=== PATIENT | female | born 1985 | race Caucasian/White ===

== ENCOUNTER → 2016-08-28 | Outpatient (CLI) | payer MEDICAID ==
[~2016-08-28] MED LIST: AMOXIL500 MG PO; CEPHALEXIN500 MG PO; CIPRO 500MG TA500 MG PO; DARVOCET-N 1001 EACH PO; FERROUS SULFAT324 M1 PO; FLAGYL500 MG PO; FLEXERIL10 M1 PO; FLEXERIL10 MG PO; HYDROCODONE1 TABLET PO; IBU-8800 MG PO; IBU800 M1 PO; IRON TABLETS325 MG PO; IRON324 MG PO; KEFLEX 500MG.500 MG PO; LORCET HD PO; LORTAB 5/500 501 TAB PO; MACROBID 100MG100 MG PO; MEDROL 4MG. DOSE4 MG PO; MOTRIN600 MG PO; NAPROSYN 500MG500 MG PO; NASONEX0.05 MG/AC NS; NOMEDS *; NOMEDS XX; NORCO 325 MG-51 TAB PO; PEN-VK500 MG PO; PRENATAL PLUS1 TA1 PO; PYRIDIUM 200MG200 MG PO; ROBAXIN-750750 MG PO; SPRINTEC 35 MCG1 TAB PO; TESSALON PERLE100 MG PO; TRAMADOL 50MG T50 M1 PO; TRAMADOL50 M1 PO; TYLENOL ES500 M1 PO; VIBRAMYCIN 100100 MG PO; VICODIN 5/500 T1 TAB PO; VOLTAREN75 MG PO
[2016-08-28 16:52] LABS: LYMPH # 2.1 K/mm3 (0.7-4.5)
[2016-08-28 16:55] LABS: HEMOGLOBIN 11.7 g/dL (12.2-16.2)
[2016-08-28 19:26] LABS: ABO BLOOD TYPE A; RH BLOOD TYPE POSITIVE
[2016-08-30 06:39] LABS: HBsAg Screen Negative (Negative); HIV Screen 4th Generation wRfx Non Reactive (Non Reactive)
[2016-08-30 08:43] LABS: Rubella Antibodies, IgG 1.22 index (Immune >0.99)
[2016-08-30 09:38] LABS: Rapid Plasma Reagin, Quant Non Reactive (NonRea<1:1)
== END ==
LOC: LAB 16:21
PROVIDERS: Nurse Practitioner Obstetrics & Gynecology
DX: Z34.80 Encounter for supervision of other normal pregnancy, unspecified trimester (principal)
CPT/HCPCS: G0432

== ENCOUNTER → 2016-09-05 | Outpatient (CLI) | payer MEDICAID ==
--- NOTE | 2016-09-06 08:50 | RADIOLOGY REPORT PS360 ---
US PREG > 14 WEEKS SNGL/GEST HISTORY: OB DATES ORDERING PHYSICIAN: Riky Cunningham MD PATIENT AGE: 31 years COMPARISON: None FINDINGS: There is a live intrauterine gestation noted in cephalic presentation. heart and body motion noted with an FHR of 1 61 bpm. Fetus is active. The following parameters are obtained: BPD 15 weeks 3 days. OFD 16 weeks 1 day HC 15 weeks 4 day Abdominal circumference 16 weeks 2 day, Average ultrasound age is 16 weeks 0 days with an estimated weight of 145 g and estimated due date by ultrasound of 02/20/2017. Visually, average amniotic fluid volume. The placenta is posterior in implantation with possible accessory lobe anteriorly versus [place] Naik contraction. No obvious retroplacental hemorrhage. IMPRESSION: Live intrauterine gestation at 16 weeks as described above.
== END ==
LOC: RAD 13:30
DX: O26.841 Uterine size-date discrepancy, first trimester (principal)

== ENCOUNTER 2017-01-22 00:45 | Outpatient (CLI) | payer MEDICAID ==
[~2017-01-22] VITALS: Ht 152.4 cm; Wt 98.2 kg
[2017-01-22 01:26] LABS: URINE BILIRUBIN - DIPSTICK NEGATIVE (NEG); URINE BLOOD TRACE-LYSED (NEG)
[2017-01-22 01:44] VITALS: BP 123/85
[2017-01-22] MEDS ORDERED: PRENATAL MULTIV1 KIT PO (01:48)
== END 2017-01-22 03:10 | disposition home or self-care (01) ==
LOC: OBOUT 00:45 → OB 00:46 → OBOUT 03:10
PROVIDERS: Obstetrics & Gynecology
DX: O26.893 Other specified pregnancy related conditions, third trimester (principal); Z3A.35 35 weeks gestation of pregnancy; R10.9 Unspecified abdominal pain

== ENCOUNTER → 2017-02-01 | Outpatient (CLI) | payer MEDICAID ==
[~2017-02-01] MED LIST changes: +FERROUS SULFAT200 M1 PO; +PRENATAL MULTIV1 KIT PO
== END ==
LOC: LAB 16:08
DX: Z34.80 Encounter for supervision of other normal pregnancy, unspecified trimester (principal)

== ENCOUNTER 2017-06-03 11:06 | Emergency (ER) | payer MEDICAID ==
[~2017-06-03] VITALS: Ht 152.4 cm; Wt 92.5 kg
[~2017-06-03 11:06] MED LIST changes: +AMOXICILLIN 25250 M2 PO
--- OUTSIDE RECORDS SUMMARY | 2017-06-03 11:43 | External Medical Summary Rpt | CCD ---
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 YELLOW complet of 017 ed Urine 01:34 Ketones TRACE NEG Abnorma complet 017 l ed [Presen 01:34 ce] in Urine by Automat ed test strip Mucus 2+ NEG Abnorma complet [Presen 017 l ed ce] in 01:34 Urine sedimen t by Light microsc opy Nitrite NEGATIV NEG complet 017 E ed [Presen 01:34 ce] in Urine by Test strip Urobili 1.0 NEG complet nogen 017 ed [Presen 01:34 ce] in Urine by Test strip BASIC METABOLIC PANEL (06-07-2013 19:00) Glucose 87 74-106 complet 013 mg/dL ed Bld-mCn 19:00 c BUN 7 mg/dL 7-18 complet Bld-mCn 013 ed c 19:00 Creat 0.6 0.6-1.0 complet SerPl-m 013 mg/dL ed Cnc 19:00 ESTIMAT 199 50-200 complet ED 013 ML/MIN ed CREATIN 19:00 INE CLEARAN CE GFR 122 59- complet (ESTIMA 013 ML/MIN ed MISA) 19:00 Sodium 140 136-145 complet SerPl-s 013 mmoL/L ed Cnc 19:00 Potassi 4.4 3.5-5.1 complet um 013 mmoL/L ed SerPl-s 19:00 Cnc Chlorid 104 98-107 complet e 013 mmoL/L ed SerPl-s 19:00 Cnc CO2 24 21.0-32 complet SerPl-s 013 mmoL/L .0 ed Cnc 19:00 Calcium 9.1 8.5-10. complet 013 mg/dL 1 ed SerPl-m 19:00 Cnc B-HCG SerPl EIA 3rd IS-aCnc (06-07-2013 19:00) B-HCG 80517.9 complet SerPl 013 mIU/ML ed EIA 3rd 19:00 IS-aCn CBC with AUTO DIFF (06-07-2013 19:00) WBC # 10.7 4.8-10. complet Bld 013 K/MM3 8 ed Auto 19:00 RBC # 09-2 4.76 4.2-5.4 complet Bld 013 M/mm3 ed Auto 19:00 Hgb 13.1 12.2-16 complet Bld-mCn 013 g/dL .2 ed c 19:00 Hct Fr 40.0 % 37.0-47 complet Bld 013 .0 ed 19:00 MCV RBC 83.9 fl 82.2-97 complet 013 .8 ed 19:00 MCH RBC 27.5 pg 27-31.2 complet Qn 013 ed Auto 19:00 MEAN 32.7 31.8-35 complet CORPUSC 013 g/dl .4 ed ULAR 19:00 HGB CONC RDW RBC 14.9 % 11.5-17 complet Auto 013 .5 ed 19:00 Platele 291 142-424 complet t Bld 013 K/mm3 ed Ql 19:00 Manual MEAN 8.5 fl 7.4-10. complet PLATELE 013 4 ed T 19:00 VOLUME Granulo 65.3 % 37.0-80 complet cytes 013 .0 ed Fr Bld 19:00 Auto LYMPH % 06-07-2 26.7 % 10-50.0 complet 013 ed 19:00 Monocyt 5.3 % 1.7-9.3 complet es Fr 013 ed Bld 19:00 Auto Eosinop 06-07-2 2.5 % 0.1-12. complet hil Fr 013 0 ed Bld 19:00 Auto Basophi 06-07-2 0.2 % 0.1-2.0 complet ls Fr 013 ed Bld 19:00 Auto Granulo 06-07-2 7.0 1.8-7.8 complet cytes # 013 K/mm3 ed Bld 19:00 Auto Lymphoc 2 2.9 0.7-4.5 complet ytes Fr 013 K/mm3 ed Bld 19:00 Auto Monocyt 06-07-2 0.6 0.1-1.0 complet es # 013 K/mm3 ed Bld 19:00 Auto Eosinop 11-09-2 0.3 0.0-0.4 complet hil # 013 K/mm3 ed Bld 19:00 Auto Basophi 0.0 0-0.2 complet ls # 013 K/MM3 ed Bld 19:00 Auto URINALYSIS/COMPLETE (06-07-2013 19:00) URINE YELLOW YELLOW complet COLOR 013 ed 19:00 URINE CLEAR CLEAR complet APPEARA 013 ed NCE 19:00 URINE NEGATIV NEG complet GLUCOSE 013 E ed - 19:00 DIPSTIC K URINE NEGATIV NEG complet BILIRUB 013 E ed IN - 19:00 DIPSTIC K URINE NEGATIV NEG complet KETONE 013 E mg/dL ed 19:00 URINE Less 1.005-1 complet SPECIFI 013 than or .030 ed C 19:00 equal GRAVITY to 1.005 URINE TRACE-I NEG complet BLOOD 013 NTACT ed 19:00 URINE 7.0 UNK 5.0-8.5 complet PH 013 ed 19:00 URINE NEGATIV NEG complet PROTEIN 013 E mg/dL ed - 19:00 DIPSTIC K URINE 0.2 NEG complet UROBILI 013 E.U./dL ed NOGEN - 19:00 DIPSTIC K URINE NEGATIV NEG complet NITRATE 013 E ed - 19:00 DIPSTIC K URINE 2+ NEG complet LEUK 013 ed ESTERAS 19:00 E URINE 5-10 0 complet RBC 013 rbc/hpf ed 19:00 URINE 10-20 O complet WBC 013 wbc/hpf ed 19:00 URINE 5-10 0-5 complet SQUAMOU 013 #/hpf ed S CELLS 19:00 URINE 2+ NONE complet AMORPH 013 ed SEDIMEN 19:00 T B-HCG SerPl EIA 3rd [facility] (05-26-2013 09:55) B-HCG 39941.3 complet SerPl 013 mIU/ML ed EIA 3rd 09:55 IS-[facility] B-HCG Ur Ql (05-26-2013 08:45) B-HCG 10-28-2 POSITIV NEG complet Ur Ql 013 E ed 08:45 URINALYSIS/COMPLETE (05-26-2013 08:43) URINE 10-28-2 YELLOW YELLOW complet COLOR 013 ed 08:43 URINE 10-28-2 CLOUDY CLEAR complet APPEARA 013 ed NCE 08:43 URINE -28-2 NEGATIV NEG complet GLUCOSE 013 E ed - 08:43 DIPSTIC K URINE --2 NEGATIV NEG complet BILIRUB 013 E ed IN - 08:43 DIPSTIC K URINE 10-28-2 NEGATIV NEG complet KETONE 013 E mg/dL ed 08:43 URINE 10-28-2 Less 1.005-1 complet SPECIFI 013 than or .030 ed C 08:43 equal GRAVITY to 1.005 URINE --2 1+ NEG complet BLOOD 013 ed 08:43 URINE 10-28-2 6.0 UNK 5.0-8.5 complet PH 013 ed 08:43 URINE --2 NEGATIV NEG complet PROTEIN 013 E mg/dL ed - 08:43 DIPSTIC K URINE 10-28-2 0.2 NEG complet UROBILI 013 E.U./dL ed NOGEN - 08:43 DIPSTIC K URINE 10-28-2 NEGATIV NEG complet NITRATE 013 E ed - 08:43 DIPSTIC K URINE 10-28-2 3+ NEG complet LEUK 013 ed ESTERAS 08:43 E URINE 10-28-2 10-20 0 complet RBC 013 rbc/hpf ed 08:43 URINE 10-28-2 10-20 O complet WBC 013 wbc/hpf ed 08:43 URINE 10-28-2 5-10 0-5 complet SQUAMOU 013 #/hpf ed S CELLS 08:43 URINE 10-28-2 2+ O complet BACTERI 013 ed A 08:43 URINALYSIS/COMPLETE (03-29-2013 23:32) URINE 03-29-2 YELLOW YELLOW complet COLOR 013 ed 23:32 URINE 03-29-2 SL CLEAR complet APPEARA 013 CLOUDY ed NCE 23:32 URINE 03-29- NEGATIV NEG complet GLUCOSE 013 E ed - 23:32 DIPSTIC K URINE 03-29- NEGATIV NEG complet BILIRUB 013 E ed IN - 23:32 DIPSTIC K URINE 08-31-2 NEGATIV NEG complet KETONE 013 E mg/dL ed 23:32 URINE 08-31-2 Greater 1.005-1 complet SPECIFI 013 than .030 ed C 23:32 or GRAVITY equal to 1.030 URINE 08-31-2 2+ NEG complet BLOOD 013 ed 23:32 URINE 08-31-2 6.0 UNK 5.0-8.5 complet PH 013 ed 23:32 URINE 31-2 NEGATIV NEG complet PROTEIN 013 E mg/dL ed - 23:32 DIPSTIC K URINE 08-31-2 0.2 NEG complet UROBILI 013 E.U./dL ed NOGEN - 23:32 DIPSTIC K URINE 08-31-2 NEGATIV NEG complet NITRATE 013 E ed - 23:32 DIPSTIC K URINE 08-31-2 NEGATIV NEG complet LEUK 013 E ed ESTERAS 23:32 E URINE 31-2 10-20 0 complet RBC 013 rbc/hpf ed 23:32 URINE -31-2 20-50 0-5 complet SQUAMOU 013 #/hpf ed S CELLS 23:32 URINE -31-2 2+ OCC complet MUCUS 013 ed 23:32 B-HCG Ur Ql (03-06-2013 22:50) B-HCG 08-08-2 NEGATIV NEG complet Ur Ql 013 E ed 22:50 B-HCG Ur Ql (01-31-2013 23:40) B-HCG 07-05-2 NEGATIV NEG complet Ur Ql 013 E ed 23:40 URINALYSIS/COMPLETE (01-31-2013 23:40) URINE 07-05-2 YELLOW YELLOW complet COLOR 013 ed 23:40 URINE 07-05-2 SL CLEAR complet APPEARA 013 CLOUDY ed NCE 23:40 URINE 07-05-2 NEGATIV NEG complet GLUCOSE 013 E ed - 23:40 DIPSTIC K URINE 07-05-2 NEGATIV NEG complet BILIRUB 013 E ed IN - 23:40 DIPSTIC K URINE 07-05-2 NEGATIV NEG complet KETONE 013 E mg/dL ed 23:40 URINE 07-05-2 Greater 1.005-1 complet SPECIFI 013 than .030 ed C 23:40 or GRAVITY equal to 1.030 URINE 07-05-2 1+ NEG complet BLOOD 013 ed 23:40 URINE 07-05-2 6.0 UNK 5.0-8.5 complet PH 013 ed 23:40 URINE -05-2 NEGATIV NEG complet PROTEIN 013 E mg/dL ed - 23:40 DIPSTIC K URINE 07-05-2 0.2 NEG complet UROBILI 013 E.U./dL ed NOGEN - 23:40 DIPSTIC K URINE -05-2 NEGATIV NEG complet NITRATE 013 E ed - 23:40 DIPSTIC K URINE -05-2 NEGATIV NEG complet LEUK 013 E ed ESTERAS 23:40 E URINE 07-05-2 3-5 0 complet RBC 013 rbc/hpf ed 23:40 URINE 07-05-2 3-5 O complet WBC 013 wbc/hpf ed 23:40 URINE -05-2 5-10 0-5 complet SQUAMOU 013 #/hpf ed S CELLS 23:40 URINE -05-2 4+ OCC complet MUCUS 013 ed 23:40 URINE -05-2 TRACE NONE complet AMORPH 013 ed SEDIMEN 23:40 T Procedures Procedure DOS Code Location Performer Comment DELIVERY [id number] ADELE ANGULO PRODUCTS 7 [facility] CONCEPTIO N EXTERNAL OTHER 7359 ADELE ANGULO MANUALLY 4 [facility] ASSISTED [facility] DELIVERY OTHER 7359 ADELE ANGULO MANUALLY 9 [facility] ASSISTED [facility] DELIVERY REPAIR OF 7569 ADELE ANGULO OTHER 8 [facility] CURRENT [facility] OBSTETRIC LACERATIO N Encounters Encounter Start End Date Code Location Performer Type Date HOSPITAL ADELE - 7 7 [facility] INPATIENT [facility] ADELE [facility] 7 7 [facility] 7 7 [facility] - 7 7 [facility] - 7 7 [facility] A[facility] - 7 7 [facility] - 7 7 [facility] - 5 5 [facility] ADELE - 4 4 [facility] ADELE - 4 4 [facility] ADELE - 4 4 [facility] ADELE - 4 4 [facility] ADELE - 4 4 [facility] ADELE - 4 4 [facility] ADELE - 4 4 [facility] ADELE - 4 4 [facility] - 4 4 [facility] ADELE - 4 4 [facility] OUTPATIEN [facility] Emergency MÓNICA Mandel MD (ER) 3 19:21 3 20:32 [facility] ADELE - 3 3 [facility] OUTPATIEN [facility] Emergency MÓNICA Almanzar (ER) 3 08:53 3 11:37 [facility] E Emergency MÓNICA Mandel MD (ER) 3 23:35 3 00:11 [facility] Emergency MÓNICA Mandel MD (ER) 3 22:51 3 00:33 [facility] Emergency MÓNICA Mandel MD (ER) 3 23:43 3 00:38 [facility] ADELE - 3 3 [facility] OUTPATI[facility] Emergency MÓNICA Agrawal MD (ER) 3 22:27 3 22:37 [facility] ADELE - 3 3 [facility] - 2 2 [facility] - 2 2 [facility] - 2 2 [facility] A[facility] - 1 1 [facility] ADELE - 0 0 [facility] ADELE - 0 0 [facility] - 0 0 [facility] - 0 0 [facility] ADELE - 0 0 [facility] ADELE - 9 9 [facility] ADELE - 9 9 [facility] ADELE - 9 9 [facility] ADELE - 9 9 [facility] ADELE - 9 9 [facility] ADELE - 9 9 [facility] ADELE - 8 8 [facility] ADELE - 8 8 [facility] A[facility] - 8 8 [facility] A[facility] - 8 8 [facility]
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
--- OUTSIDE RECORDS SUMMARY | 2017-06-03 11:48 | External Medical Summary Rpt | CCD ---
Demographics Preferred Language Icelandic Marital Status Unknown Druze Affiliation Unknown Race Unknown Ethnic Group Unknown Author Author MARIIA Address Unknown Phone Immunization No patient found.
--- OUTSIDE RECORDS SUMMARY | 2017-06-03 11:48 | External Medical Summary Rpt ---
Author Author MARIIA العراقي, [employer] Organization [employer] Address Unknown Phone Unavailable Results Hemoglobin & Hematocrit panel in Blood Observa Value Referen Units Interpr Notes Date tion ce etation Range Hematocri 37.0 - % Low No Feb 15 t [Volume 47.0 informati 2016 6:50 on in AM Fraction] source of Blood data Hemoglobi 12.2 - g/dL Low No Feb 15 n 16.2 informati 2016 6:50 [Mass/vol on in AM ume] in source Blood data pH of Cord blood Observa Value Referen Units Interpr Notes Date tion ce etation Range pH of 7.35 - No Low No Feb 14 Cord 7.45 informati informati 2016 2:55 blood on in on in PM source source data data Blood type & Indirect antibody screen panel in Blood Observa Value Referen Units Interpr Notes Date ti ce etation Range Blood NEGATIV NEGATIV No No No Feb 13 group E E informa informa informa 2016 antibod tion in tion in ti in 5:40 PM y source source source screen data data data [Presen ce] in Serum or Plasma Rh POSITIV No No No No Feb 13 [Type] E informa informa informa informa 2016 in tion in tion in tion in tion in 5:40 PM Blood source source source source data data data data ABO A No No No No Feb 13 group informa informa informa informa 2016 [Type] tion in tion in tion in tion in 5:40 PM in source source source source Blood data data data data CBC W Auto Differential panel in Blood Observa Value Referen Units Interpr Notes Date tion ce etation Range Basophils 0 - 0.2 K/MM3 Normal No Feb 13 informati 2016 5:40 [#/volume on in PM ] in source Blood by data Automated count Basophils 0.1 - 2.0 % Normal No Feb 13 / informati 2016 5:40 leukocyte on in PM s in source Blood by data Automated count Eosinophi 0.0 - 0.4 K/mm3 Normal No Feb 13 ls informati 2016 5:40 [#/volume on in PM ] in source Blood by data Automated count Eosinophi 0.1 - % Normal No Feb 13 ls/100 12.0 informati 2016 5:40 leukocyte on in PM s in source Blood by data Automated count Granulocy 1.8 - 7.8 K/mm3 Normal No Feb 13 andres informati 2016 5:40 [#/volume on in PM ] in source Blood by data Automated count Granulocy 37.0 - % Normal No Feb 13 andres/100 80.0 informati 2016 5:40 leukocyte on in PM s in source Blood by data Automated count Hematocri 37.0 - % Low No Feb 13 t [Volume 47.0 informati 2016 5:40 on in PM Fraction] source of Blood data Hemoglobi 12.2 - g/dL Low No Feb 13 n 16.2 informati 2016 5:40 [Mass/vol on in PM ume] in source Blood data Lymphocyt 0.7 - 4.5 K/mm3 Normal No Feb 13 es informati 2016 5:40 [#/volume on in PM ] in source Unspecifi data ed specimen by Automated count Lymphocyt 10 - 50.0 % Normal No Feb 13 es informati 2016 5:40 [#/volume on in PM ] in source Unspecifi data ed specimen by Automated count Erythrocy 27 - 31.2 pg Normal No Feb 13 te mean informati 2016 5:40 corpuscul on in PM ar source hemoglobi data n [Entitic mass] Erythrocy 31.8 - g/dl Normal No Feb 13 te mean 35.4 informati 2016 5:40 corpuscul on in PM ar source hemoglobi data n concentra tion [Mass/vol ume] by Automated count Erythrocy 82.2 - fl Normal No Feb 13 te mean 97.8 informati 2016 5:40 corpuscul on in PM ar volume source [Entitic data volume] by Automated count Monocytes 0.1 - 1.0 K/mm3 Normal No Feb 13 informati 2016 5:40 [#/volume on in PM ] in source Blood by data Automated count Monocytes 1.7 - 9.3 % Normal No Feb 13 /100 informati 2016 5:40 leukocyte on in PM s in source Blood by data Automated count Platelet 7.4 - fl High No Feb 13 mean 10.4 informati 2016 5:40 volume on in PM [Entitic source volume] data in Blood by Automated count Platelets 142 - 424 K/mm3 Normal No Feb 13 informati 2016 5:40 [#/volume on in PM ] in source Blood data Erythrocy 4.2 - 5.4 M/mm3 Low No Feb 13 andres informati 2016 5:40 [#/volume on in PM ] in source Amniotic data fluid Erythrocy 11.5 - % Normal No Feb 13 te 17.5 informati 2016 5:40 distribut on in PM ion width source [Entitic data volume] by Automated count Leukocyte 4.8 - K/MM3 Normal No Feb 13 s 10.8 informati 2016 5:40 [#/volume on in PM ] in source Blood data Drugs identified in Urine by Screen method Observa Value Referen Units Interpr Notes Date tion ce etation Range Collected by nurse? Y Hold specimen in OE? N Positive urine drug screen samples are stored for 7 days. Contact the Lab if confirmation of positives is needed. Ampheta NEGATIV <1000 ng/mL No No Jan 29 mine E informa informa 2017 [Presen tion in tion in 1:34 AM ce] in source source Urine data data by Screen method Barbitura <200 ng/mL No No Jan 29 andres informati informati 2016 1:34 [Mass/vol on in on in AM ume] in source source Urine by data data Screen method Benzodiaz 200 ng/mL ng/mL No No Jan 29 epines informati informati 2016 1:34 [Mass/vol on in on in AM ume] in source source Serum or data data Plasma by Screen method Cocaine <300 ng/g No No Jan 29 [Mass/vol informati informati 2017 1:34 ume] in on in on in AM Unspecifi source source ed data data specimen Methadone <300 ng/mL No No Jan 29 informati informati 2017 1:34 [Mass/vol on in on in AM ume] in source source Unspecifi data data ed specimen Opiates <300 ng/mL No No Jan 29 [Mass/vol informati informati 2017 1:34 ume] in on in on in AM Unspecifi source source ed data data specimen Phencycli <25 ng/mL No No Jan 29 dine informati informati 2017 1:34 [Mass/vol on in on in AM ume] in source source Unspecifi data data ed specimen 11-Hydr NEGATIV <50 ng/mL No No Jan 29 oxy E informa informa 2017 delta-9 tion in tion in 1:34 AM source source tetrahy data data drocann abinol [Presen ce] in Unspeci fied specime n Urinalysis dipstick W Reflex Microscopic panel in Urine Observa Value Referen Units Interpr Notes Date tion ce etation Range Collected by nurse? Y Hold specimen in OE? N Appeara SL CLEAR No No No Jan 29 nce of CLOUDY informa informa informa 2017 Urine tion in tion in tion in 1:34 AM source source source data data data Amorpho TRACE NONE No No No Jan 29 us informa informa informa 2017 sedimen tion in tion in tion in 1:34 AM t source source source [Presen data data data ce] in Urine sedimen t by Light microsc opy Bilirub NEGATIV NEG No No No Jan 29 in E informa informa informa 2016 [Presen tion in tion in tion in 1:34 AM ce] in source source source Urine data data data by Test strip Erythro TRACE-L NEG No No No Jan 29 cytes YSED informa informa informa 2016 [Presen tion in tion in tion in 1:34 AM ce] in source source source Urine data data data Color YELLOW YELLOW No No No Jan 29 of informa informa informa 2017 Urine tion in tion in tion in 1:34 AM source source source data data data Glucose NEG No No No Jan 29 [Mass/vol informati informati informati 2017 1:34 ume] in on in on in on in AM Urine by source source source Test data data data strip Ketones TRACE NEG mg/dL Abnorma No Jan 29 l informa 2016 [Presen tion in 1:34 AM ce] in source Urine data by Automat ed test strip Mucus 2+ NEG No Abnorma No Jan 29 [Presen informa l informa 2017 ce] in tion in tion in 1:34 AM Urine source source sedimen data data t by Light microsc opy Mucus 2+ OCC No No No Jan 29 [Presen informa informa informa 2016 ce] in tion in tion in tion in 1:34 AM Urine source source source sedimen data data data t by Light microsc opy Nitrite NEGATIV NEG No No No Jan 29 E informa informa informa 2016 [Presen tion in tion in tion in 1:34 AM ce] in source source source Urine data data data by Test strip pH of 5.0 - 8.5 No Normal No Jan 29 Urine informati informati 2016 1:34 on in on in AM source source data data Protein NEG mg/dL High No Jan 29 [Mass/vol informati 2017 1:34 ume] in on in AM Urine by source Automated data test strip Erythro 3-5 0 rbc/hpf No No Jan 29 cytes informa informa 2016 [Presen tion in tion in 1:34 AM ce] in source source Urine data data sedimen t by Light microsc opy Specific 1.005 - No Normal No Jan 29 gravity 1.030 informati informati 2016 1:34 of Urine on in on in AM source source data data Epithel 20-50 0 - 5 #/hpf No No Jan 29 ial informa informa 2016 cells.s tion in tion in 1:34 AM quamous source source data data [Presen ce] in Urine sedimen t by Microsc opy high power field Urobili 1.0 NEG E.U./dL No No Jan 29 nogen informa informa 2016 [Presen tion in tion in 1:34 AM ce] in source source Urine data data by Test strip Leukocy [20 O wbc/hpf No No Jan 29 andres wbc/hpf informa informa 2016 [#/volu ; 50 tion in tion in 1:34 AM me] in wbc/hpf source source Urine ] data data Urinalysis dipstick W Reflex Microscopic panel in Urine Observa Value Referen Units Interpr Notes Date tion ce etation Range Collected by nurse? Y Hold specimen in OE? N Appeara SL CLEAR No No No Jan 29 nce of CLOUDY informa informa informa 2017 Urine tion in tion in tion in 1:34 AM source source source data data data Bilirub NEGATIV NEG No No No Jan 29 in E informa informa informa 2016 [Presen tion in tion in tion in 1:34 AM ce] in source source source Urine data data data by Test strip Erythro TRACE-L NEG No No No Jan 29 cytes YSED informa informa informa 2016 [Presen tion in tion in tion in 1:34 AM ce] in source source source Urine data data data Color YELLOW YELLOW No No No Jan 29 of informa informa informa 2016 Urine tion in tion in tion in 1:34 AM source source source data data data Glucose NEG No No No Jan 29 [Mass/vol informati informati informati 2016 1:34 ume] in on in on in on in AM Urine by source source source Test data data data strip Ketones TRACE NEG mg/dL Abnorma No Jan 29 l informa 2016 [Presen tion in 1:34 AM ce] in source Urine data by Automat ed test strip Mucus 2+ NEG No Abnorma No Jan 29 [Presen informa l informa 2016 ce] in tion in tion in 1:34 AM Urine source source sedimen data data t by Light microsc opy Nitrite NEGATIV NEG No No No Jan 29 E informa informa informa 2016 [Presen tion in tion in tion in 1:34 AM ce] in source source source Urine data data data by Test strip pH of 5.0 - 8.5 No Normal No Jan 29 Urine informati informati 2017 1:34 on in on in AM source source data data Protein NEG mg/dL High No Jan 29 [Mass/vol informati 2016 1:34 ume] in on in AM Urine by source Automated data test strip Specific 1.005 - No Normal No Jan 29 gravity 1.030 informati informati 2017 1:34 of Urine on in on in AM source source data data Urobili 1.0 NEG E.U./dL No No Jan 29 nogen informa informa 2016 [Presen tion in tion in 1:34 AM ce] in source source Urine data data by Test strip
--- OUTSIDE RECORDS SUMMARY | 2017-06-03 11:48 | External Medical Summary Rpt | CCD ---
Demographics Preferred Language Yi Marital Status Unknown Worship Affiliation Unknown Race Unknown Ethnic Group Unknown Author Author MARIIA Address Unknown Phone [email or web address] Immunization No patient found.
--- NOTE | 2017-06-03 12:21 | Urgent Treatment Center Report ---
History of Present Issue Date/Time Seen by Provider 06/03/17 1216 Visit Reason Pt arrived:Walked Presenting Problem:PT C/O COUGH, CONGESTION, SORE THROAT X3 DAYS Location if Accident: Onset of symptoms date/time:/ or onset unknown for:MEDICAL HX UNKNOWN Have you (or family members/close friends) recently traveled outside the [place]? N If Yes, where/when: Have you had exposure to infectious disease within the past month? TB? Other? Specify: Mother state that she has had cough and congestion for several days and her throat is sore and state that she has continued to feel worse. State that ears are burning and just over all not feeling well State that her children have been sick and she may have caught something from them ALLERGIES Coded Allergies: Honey Bee (Mild, NA-NAUSEA/VOMITING 01/26/17) Penicillins (Mild, 07/15/16) codeine (Mild, ITCHY RASH 02/13/17) honey (Mild, NA-NAUSEA/VOMITING 01/26/17) Home Medications Active Scripts AMOXICILLIN (Amoxicillin) 250 MG PO Q8 #21 CAP Prov: 02/16/17 Reported Medications Ferrous Sulfate 325 MG PO DAILY #30 TAB History Medical History General CAD? No Angina: No MA: No Hypertension? No Hyperlipidemia? Yes CHF? No DVT? No PE? No COPD? No Asthma? No Anemia? No GERD? No Gastric ulcers? No GI Bleed? No Hernia? No Thyroid Problems? No Hypothyroidism? No CVA? No Seizures? No Diabetes? No Renal Insuffiency? No UTI? Yes Stones? No BPH? No GB Disease: No Nephritic Syndrome? No Asplenia? No Hepatitis? No Sickle Cell Disease? No Arthritis? No Migraines? No Cataracts? No Glaucoma? No MRSA? No HIV? No TB? No Anxiety? No Depression? No Cancer? No More? No Immunization HX DT/Tetanus Unknown Flu 2012-FSN Pneumonia Refuses Surgical Hx Previous Surgery?N Social History Smoking Hx Smoker: Never Smoker Tobacco: No Packs/day < 1 Pack Alcohol Alcohol: No Review of Systems All Other Systems Reviewed and Negative Constitutional chills, fever ENT ear pain, nose congestion, throat pain. Respiratory cough Physical Exam Vital Signs Vital Signs Date Time Temp Pulse Resp B/P Pulse O2 O2 Flow FiO2 Ox Delivery Rate 06/03 1145 98.9 109 18 124/79 98 General Appearance normal appearance, WD/WN, no apparent distress Ear, Nose, Throat Throat red, irritated, tenderness noted maxillary sinuses Respiratory Status Yes: trachea midline, chest symmetrical, non tender chest. No: respiratory distress. Cardiovascular normal exam, regular rate/rhythm, no peripheral edema Neurologic alert, normal exam, oriented x 3 Medical Decision Making LABS/Meds/Orders Pt receiving controlled substance in ED? No Departure Departure Time of Disposition 1227 Disposition DC Home or Self Care(routine) Clinical Impression Primary Impression: Upper respiratory infection Qualifiers: URI type: unspecified URI Qualified Code: J06.9 - Acute upper respiratory infection, unspecified Condition STABLE Referrals Rm DURAN,Alexis Bal. (Family): 2 Days-Call Office if no improvement or worsening of symptoms Patient Instructions Cough, Sore Throat Additional Instructions * Monitor Temp. Tylenol and/or Ibuprofen as needed. ER if fever is no less than 101 despite alternating Tylenol and Ibuprofen * Encourage fluids, water, Gatorade, powerade, pedialyte if infant/toddler/or child * Warm salt water gargles for throat irritation *Warm fluids *Sore throat lozenges *Sleep elevated *humidifier or vaporizer Lots of rest Increase fluids, water, Gatorade, powerade *Flonase 2 sprays each nostril daily but may take 2-3 days to notice improvement with it *Your throat swab was sent to lab for culture. Those results area typically sent to your primary care physician. Be sure to follow up in 2-3 days if no improvement so they can review those results and treat if necessary If you dont have primary care I recommend you get one, but in the mean time you will have to return to a walk in clinic Follow up IMMEDIATELY for new or worsening of symptoms OR no noticeable improvement over the next 48-72 hours. 911 immediately for any life threatening symptoms such as chest pain or difficulty breathing Discharge Counseling Counseled pt/family regarding diagnosis, medications/RX, home care, follow up needs Prescriptions Current Visit Scripts Azithromycin (Zithromycin (Z-AVILA) 250MG Tab) 250 MG PO DAILY #6 TAB TAKE TWO (2) TABLETS ON DAY 1, THEN ONE (1) TABLET DAY #2 THRU #5 Methylprednisolone (Medrol Dose Avila) 4 MG PO UD #1 AVILA TAKE DIRECTED ON PACKAGING at 9778
[2017-06-03] MEDS ORDERED: MEDROL 4MG. DOSE4 MG PO (12:29)
[2017-06-03] MEDS ORDERED: ZITHROMAX Z PA250 MG PO (12:29)
[2017-06-03 12:34] VITALS: BP 124/79
== END 2017-06-03 12:34 | disposition home or self-care (01) ==
LOC: UTC 11:06
DX: J06.9 Acute upper respiratory infection, unspecified (principal); Z88.0 Allergy status to penicillin